=== PATIENT | male | born 1980 | race Caucasian/White ===

== ENCOUNTER 2018-01-21 12:42 | Day surgery (SDC) | payer OTHER ==
[2018-01-21] MEDS ORDERED: Ketorolac INJ* 30 MG/ML 1 ML VIAL IV PUSH ONE (14:45)
[2018-01-21 15:00] LABS: ABS Basophils 0 10^3/ul (0-0.2); ABS Eosinophils 0 10^3/ul (0-0.6); ABS Lymphocytes 0.9 10^3/ul (1.0-4.8); ABS Monocytes 1.1 10^3/ul (0-0.8); ABS Neutrophils 13.2 10^3/ul (1.5-7.7); ABS Nucleated RBC 0 10^3/ul; Eosinophil % 0.2 % (0-6); Hematocrit 42 % (42-52); Hemoglobin 14.6 g/dl (14.0-18.0); Mean Corpuscular HGB Conc 35 g/dl (31-36); Mean Corpuscular Hemoglobin 33 pg (27-31); Mean Corpuscular Volume 94 fL (80-94); Mean Platelet Volume 7.8 um3 (7.4-10.4); Nucleated Red Blood Cells % 0; Platelet Count 211 10^3/ul (150-450); Red Blood Count 4.49 10^6/ul (4.0-5.4); Red Cell Distribution Width 12 % (10.5-15); White Blood Count 15.3 10^3/ul (3.5-10.8)
[2018-01-21 15:21] LABS: EGFR Non-African American 96.7 (>60)
--- NOTE | 2018-01-21 16:07 | RAD ---
INDICATION: RIGHT lower quadrant pain with clinical concern for acute appendicitis. COMPARISON: No relevant prior exams available on the [facility] for comparison. TECHNIQUE: Ultrasound of the right lower quadrant. REPORT: 0.81 cm diameter non peristalsing blind-ending noncompressible tubular structure with suggestion of gut wall signature demonstrate 0.28 cm single wall thickness. No appendicolith visualized. Small volume of adjacent RIGHT lower quadrant free fluid. No loculated abscess collection evident. IMPRESSION: The constellation of findings in the correct clinical context is consistent with acute appendicitis.
[2018-01-21] MEDS ORDERED: Bupivacaine 0.5% SDV PF* 30ML VIAL ONE ×2 (17:42→18:26)
[2018-01-21] MEDS ORDERED: fentaNYL* 50 MCG/ML 2 ML VIAL (100 MCG VIAL) ONE ×3 (18:06→19:57)
[2018-01-21] MEDS ORDERED: Lidocaine 2% PF * 5 ML VIAL ONE (18:07)
[2018-01-21] MEDS ORDERED: Propofol* 10 MG/ML 20 ML BTL IV PUSH ONE ×2 (18:07→18:50)
[2018-01-21] MEDS ORDERED: Succinylcholine* 20 MG/ML 10 ML VIAL ONE (18:07)
[2018-01-21] MEDS ORDERED: Rocuronium* 10 MG/ML VIAL ONE (18:09)
[2018-01-21] MEDS ORDERED: Buffered Lidocaine 0.9% SYRIN* 5 ML/SYR SYRINGE INTRADERM ONE (18:14)
[2018-01-21] MEDS ORDERED: Metoclopramide IV* 5 MG/ML 2 ML VIAL IV SLOW PU ONE (18:14)
[2018-01-21] MEDS ORDERED: Sodium Citrate/Citric Acid* 15 ML UDC PO ONE (18:14)
[2018-01-21] MEDS ORDERED: Famotidine IV* 10 MG/ML 2 ML (20 mg) IV ONE (18:14)
[2018-01-21] MEDS ORDERED: Ondansetron INJ* 2 MG/ML VIAL IV PRN (18:15)
[2018-01-21] MEDS ORDERED: Ketorolac INJ* 30 MG/ML 1 ML VIAL IV PRN (18:15)
[2018-01-21] MEDS ORDERED: oxyCODONE/Acetamin 5/325 MG* TAB PO PRN (18:15)
[2018-01-21] MEDS ORDERED: oxyCODONE TAB* 5 MG TAB PO PRN ×2 (18:15→19:24)
[2018-01-21] MEDS ORDERED: HYDROmorphone INJ* 1 MG/ML CARPUJECT SYRINGE IV PRN (18:15)
[2018-01-21] MEDS ORDERED: Naloxone* 0.4 MG/ML 1 ML VIAL IV PRN (18:15)
[2018-01-21] MEDS ORDERED: Acetaminophen TAB* 325 MG PO PRN (18:15)
--- NOTE | 2018-01-21 18:26 | HP ---
H&P (Free Text) History and Physical: CC: RLQ abdominal pain HPI: 37 yo M generally health presented [place] the [facility] today with 12 hr of progressive lower abdominal pain associated with N/V and anorexia. The pain is provoked by movement and nothing relieves his pain. He reports feeling feverish. He denies sick contacts or recent travel. He has had no similar pain in the past. He had a normal BM today. Denies dysuria/hematuria. He was noted to have elevated WBCs in the ED and tenderness in the RLQ. An US showed findings c/w acute appendicitis and surgical consult was requested. PMH: seizure disorder, GERD, eczema PSH: palatal split Meds: Cialis All: None. Hives after amoxicillin once. SH: ex-tob smoker (3yr hx); EtOH intake 1 per week; occasional MJ use; no IVDA ; Grad student at [employer]. FH: diabetes in mother; arrhythmia in father; no DVT/cancer/anesthesia complications. ROS: GI: h/o blood per rectum yrs ago with GI workup reportedly negative. Neuro: Had seizure evaluation by Neurologist in past for grand mal 10 yrs ago. Noted "hypoperfusion of occipital lobe" possibly related to h/o concussion. 14 pt review otherwise was negative. PE: Vital Signs Temp 99 F 01/21/18 12:42 Pulse 88 01/21/18 12:42 Resp 18 01/21/18 12:42 BP 125/76 01/21/18 12:42 Pulse Ox 98 01/21/18 12:42 Gen: WDWN; position on ED stretcher. HEENT: NCAT; symmetrical; OP clear; dentition intact; tongue midline Neck: supple, ML trachea; no NORIS Lungs: CTA B; no W/R/R Heart: reg, s1s2; no M/R/G Abd: No scars, BS+; softly distended; tender in lower abd, R>L; +Rovsing Ext: warm; no C/C/E; no CT Skin: multiple tattoos; no rash. Intake & Output 01/20/18 01/21/18 01/21/18 18:59 06:59 18:59 Weight 175 lb Laboratory Results - last 24 hr 01/21/18 01/21/18 01/21/18 14:46 14:46 14:46 WBC 15.3 H RBC 4.49 Hgb 14.6 Hct 42 MCV 94 MCH 33 H MCHC 35 RDW 12 Plt Count 211 MPV 7.8 Neut % (Auto) 86.4 H Lymph % (Auto) 6.0 L [place] % (Auto) 7.2 H Eos % (Auto) 0.2 Baso % (Auto) 0.2 Absolute Neuts (auto) 13.2 H Absolute Lymphs (auto) 0.9 L Absolute Monos (auto) 1.1 H Absolute Eos (auto) 0 Absolute Basos (auto) 0 Absolute Nucleated RBC 0 Nucleated RBC % 0 Sodium 136 L Potassium 3.8 Chloride 102 Carbon Dioxide 26 Anion Gap 8 BUN 10 Creatinine 0.89 Est GFR ( Amer) 124.4 Est GFR (Non-Af Amer) 96.7 BUN/Creatinine Ratio 11.2 Glucose 95 Lactic Acid 0.7 Calcium 9.1 Total Bilirubin 0.90 AST 11 L ALT 10 Alkaline Phosphatase 31 L C-Reactive Protein 7.56 H Total Protein 6.4 Albumin 4.2 Globulin 2.2 Albumin/Globulin Ratio 1.9 Lipase 13 Assessment: 37 yo M with clinical findings and radiographic findings consistent with acute appendicitis. Plan/Recommendations: Laparoscopic appendectomy. I discussed the nature of the procedure, indications, risks, benefits, alternatives, and option of no treatment with the patient and his . Risks explained including but not limited to: bleeding, infection, pain, scarring, blood clots, pneumonia, visceral injury, N/V, and risk of GETA. All questions were answered. He stated understanding and agreed to proceed.
[2018-01-21] MEDS ORDERED: EPHEDrine (Pressors)* 50 MG/ML VIAL ONE (19:06)
[2018-01-21] MEDS ORDERED: Ketorolac TAB * 10 MG TAB PO PRN (19:22)
--- NOTE | 2018-01-21 19:32 | BRIEFOPN ---
Brief Operative Note - Surgery Procedures: PRE/POSTOP DX: ACUTE APPENDICITIS PROC: LAPAROSCOPIC APPENDECTOMY SURG: MECENAS ASSIST: NONE ANES: SVETLANA/KAYCEE EBL: <5ML SPEC: APPENDIX IVF: 600ML LR DRAIN/COMPL: NONE COND: STABLE TO RR; EXTUBATED.
[2018-01-21] MEDS ORDERED: oxyCODONE TAB* 5 MG TAB ONE (19:54)
--- NOTE | 2018-01-21 19:54 | ED ---
Zenon Tyson Natalie scribed for Jeferson Sandoval MD on 01/21/18 at 1444 . Abdominal Pain/Male - HPI Summary HPI Summary: The patient is a 37 y/o M presenting to the ED c/o RLQ pain starting this morning when he woke up at 07:00. Yesterday he had a normal appetite, normal urination, and normal BM, but today he hasn't had an appetite, but his urination and BM are still normal. He thought that he may have had to go to the bathroom, but having a BM did not resolve the pain. He reports that palpation and changing his posture makes the pain worse. He currently rates the pain as 3/ 10 in severity and describes it as dull and aching. He additionally c/o a current migraine and nausea that were not present initially. He has not vomited. No previous hx of back problems and has not had an appendectomy. - History of Current Complaint Chief Complaint: EDGeneral Stated Complaint: ABD PAIN Time Seen by Provider: 01/21/18 14:11 Hx Obtained From: Patient Onset/Duration: Sudden Onset - with gradual worsening, Still Present Timing: Constant Severity Initially: Mild Severity Currently: Mild Pain Intensity: 3 Pain Scale Used: 0-10 Numeric Location: Discrete At: RLQ Radiates: No Aggravating Factor(s): Other: - palpation and posture change Alleviating Factor(s): Nothing Associated Signs And Symptoms: Positive: Decreased Appetite, Nausea. Negative: Urinary Symptoms, Vomiting - Allergies/Home Medications Allergies/Adverse Reactions: Allergies Allergy/AdvReac Type Severity Reaction Status Date / Time amoxicillin Allergy Rash Verified 01/21/18 15:54 Home Medications: Home Medications Tadalafil [Cialis] 5 mg PO DAILY 01/21/18 [History Confirmed 01/21/18] PMH/Surg Hx/FS Hx/Imm Hx Cardiovascular History: Denies: Hx Hypertension Musculoskeletal History: Denies: Hx Back Problems Infectious Disease History: No Infectious Disease History: Denies: Traveled Outside the US in Last 30 Days - Family History Known Family History: Negative: Cardiac Disease, Diabetes - Social History Alcohol Use: Weekly Substance Use Type: Reports: None Smoking Status (MU): Former Smoker Review of Systems Gastrointestinal: Negative - abnormal BM Positive: Abdominal Pain - RLQ, Nausea, Other - decreased appetite. Negative: Vomiting Positive: no symptoms reported Positive: Headache All Other Systems Reviewed And Are Negative: Yes Physical Exam - Summary Physical Exam Summary: Appearance: The patient is well-nourished in no acute distress and in no acute pain. Skin: The skin is warm and dry and skin color reflects adequate perfusion. HEENT: The head is normocephalic and atraumatic. The pupils are equal and reactive. The conjunctivae are clear and without drainage. Nares are patent and without drainage. Mouth reveals moist mucous membranes and the throat is without erythema and exudate. The external ears are intact. The ear canals are patent and without drainage. The tympanic membranes are intact. Neck: The neck is supple with full range of motion and non-tender. There are no carotid bruits. There is no neck vein distension. Respiratory: Chest is non-tender. Lungs are clear to auscultation and breath sounds are symmetrical and equal. Cardiovascular: Heart is regular rate and rhythm. There is no murmur or rub auscultated. There is no peripheral edema and pulses are symmetrical and equal. Abdomen: The abdomen is tender in the RLQ. There is mild rebound. There are normal bowel sounds heard in all four quadrants and there is no organomegaly palpated. Positive Rovsing's sign. Musculoskeletal: There is no back tenderness noted. Extremities are non-tender with full range of motion. There is good capillary refill. There is no peripheral edema or calf tenderness elicited. Neurological: Patient is alert and oriented to person, place and time. The patient has symmetrical motor strength in all four extremities. Cranial nerves are grossly intact. Deep tendon reflexes are symmetrical and equal in all four extremities. Psychiatric: The patient has an appropriate affect and does not exhibit any anxiety or depression. Triage Information Reviewed: Yes Vital Signs On Initial Exam: Initial Vitals Temp Pulse Resp BP Pulse Ox 99 F 88 18 125/76 98 01/21/18 12:42 01/21/18 12:42 01/21/18 12:42 01/21/18 12:42 01/21/18 12:42 Vital Signs Reviewed: Yes Diagnostics - Vital Signs Vital Signs Temp Pulse Resp BP Pulse Ox 01/21/18 12:42 99 F 88 18 125/76 98 - Laboratory Lab Results: Lab Results 01/21/18 01/21/18 01/21/18 Range/Units 14:46 14:46 14:46 WBC 15.3 H (3.5-10.8) 10^3/ul RBC 4.49 (4.0-5.4) 10^6/ul Hgb 14.6 (14.0-18.0) g/dl Hct 42 (42-52) % MCV 94 (80-94) fL MCH 33 H (27-31) pg MCHC 35 (31-36) g/dl RDW 12 (10.5-15) % Plt Count 211 (150-450) 10^3/ul MPV 7.8 (7.4-10.4) um3 Neut % (Auto) 86.4 H (38-83) % Lymph % (Auto) 6.0 L (25-47) % [place] % (Auto) 7.2 H (0-7) % Eos % (Auto) 0.2 (0-6) % Baso % (Auto) 0.2 (0-2) % Absolute Neuts (auto) 13.2 H (1.5-7.7) 10^3/ul Absolute Lymphs (auto) 0.9 L (1.0-4.8) 10^3/ul Absolute Monos (auto) 1.1 H (0-0.8) 10^3/ul Absolute Eos (auto) 0 (0-0.6) 10^3/ul Absolute Basos (auto) 0 (0-0.2) 10^3/ul Absolute Nucleated RBC 0 10^3/ul Nucleated RBC % 0 Sodium 136 L (139-145) mmol/L Potassium 3.8 (3.5-5.0) mmol/L Chloride 102 (101-111) mmol/L Carbon Dioxide 26 (22-32) mmol/L Anion Gap 8 (2-11) mmol/L BUN 10 (6-24) mg/dL Creatinine 0.89 (0.67-1.17) mg/dL Est GFR ( Amer) 124.4 (>60) Est GFR (Non-Af Amer) 96.7 (>60) BUN/Creatinine Ratio 11.2 (8-20) Glucose 95 (70-100) mg/dL Lactic Acid 0.7 (0.5-2.0) mmol/L Calcium 9.1 (8.6-10.3) mg/dL Total Bilirubin 0.90 (0.2-1.0) mg/dL AST 11 L (13-39) U/L ALT 10 (7-52) U/L Alkaline Phosphatase 31 L (34-104) U/L C-Reactive Protein 7.56 H (< 5.00) mg/L Total Protein 6.4 (6.4-8.9) g/dL Albumin 4.2 (3.2-5.2) g/dL Globulin 2.2 (2-4) g/dL Albumin/Globulin Ratio 1.9 (1-3) Lipase 13 (11.0-82.0) U/L Result Diagrams: 01/21/18 14:46 01/21/18 14:46 Lab Statement: Any lab studies that have been ordered have been reviewed, and results considered in the medical decision making process. - Ultrasound No standard instances Ultrasound Interpretation: Positive (See Comments) - Appendix US: The constellation of findings in the correct clinical context is consistent with acute appendicitis. ED physician has reviewed this report. Ultrasound Interpretation Completed By: Radiologist Re-Evaluation - Re-Evaluation First Eval Re-Evaluation Time: 17:00 Change: Unchanged Comment: I spoke with the patient about possible surgery due to Appendix US result of acute appendicitis. Abdominal Pain Fem Course/Dx - Course Course Of Treatment: Mr. Agarwal presented with a pretty good story for acute appendicitis. He was found to have a mild leukocytosis of 15,000 and as he has quite thin body habitus, an ultrasound was obtained. This did show an acute appendicitis and Dr. Morrison was contacted, came to the emergency department and took him to the OR. - Diagnoses Provider Diagnoses: Acute appendicitis - Provider Notifications Discussed Care Of Patient With: Jean Calvo Time Discussed With Above Provider: 16:30 - I spoke with Dr. Calvo about the pt's US result of acute appendicitis. Discharge - Sign-Out/Discharge Documenting (check all that apply): Discharge/Admit/Transfer - Discharge Plan Condition: Stable Disposition: ADMITTED TO [facility] - Billing Disposition and Condition Condition: STABLE Disposition: [facility] [place] The documentation as recorded by the Zenon wood Natalie accurately reflects the service I personally performed and the decisions made by me, Jeferson Sandoval MD.
[2018-01-21] MEDS: fentaNYL* 50 MCG/ML 2 ML VIAL (100 MCG VIAL) IV PRN ×2 (19:59→20:12)
[2018-01-21 20:33] VITALS: BP 130/77
--- NOTE | 2018-01-22 02:19 | OP ---
DATE OF OPERATION: 01/21/18 - [facility] DATE OF : 82 SURGEON: Jean Calvo MD LEASE ANALYST: None. ANESTHESIOLOGIST: Dr. Maguire. ANESTHESIA: General endotracheal. PRE-OP DIAGNOSIS: Acute appendicitis. POST-OP DIAGNOSIS: Acute appendicitis. OPERATIVE PROCEDURE: Laparoscopic appendectomy. ESTIMATED BLOOD LOSS: Minimal. IV FLUIDS: Crystalloids. SPECIMEN: Appendix. DRAINS: None. COMPLICATIONS: None. COUNTS: Instrument, needle, and sponge counts correct. DESCRIPTION OF PROCEDURE: The patient was brought to the operating room and placed on the table supine. Sequential compression devices were placed on both lower extremities and general anesthesia was administered. The abdomen was prepped and draped in the usual sterile fashion and he received appropriate intravenous antibiotics. A time-out was performed. Local anesthetic was infiltrated into the skin and soft tissue prior to making each incision. Entry into the abdomen was through a transumbilical vertical incision using an open technique. After accessing the peritoneal cavity, a 12- mm trocar was placed and carbon dioxide was insufflated to a pressure of 15 mmHg. Under direct visualization, a 5-mm trocar was placed in the suprapubic midline and in the left lower quadrant. Appendix was identified in the right lower quadrant and it had suppurative changes. There were some adhesions to the mesentry of the cecum and ileum that were taken down using a combination of sharp and blunt dissection. The appendix was elevated. A window created in the mesentery of the appendix at the base and the appendix was divided using the EndoGIA stapler with a nagy cartridge. The mesentry of the appendix was divided with the EndoGIA stapler with a green cartridge. The appendix was placed into an endoscopic retrieval bag and was drawn through the umbilical site. The inspection revealed hemostasis to be excellent and these staple lines were intact. The ports were removed, carbon dioxide was released, and the umbilical wound was closed with 0 Vicryl in a [id number] fashion. Skin incisions were closed with 4-0 Monocryl in subcuticular fashion. Steri- Strips were applied. The patient tolerated the procedure well. He was extubated and transferred to the recovery room in stable condition. [id number]/[facility] #: [id number] [facility] CENTERAbner
== END 2018-01-21 17:45 | disposition home or self-care (01) ==
LOC: ED 12:42 → OR 17:45
PROVIDERS: ATTEND Surgery
DX: K35.80 Unspecified acute appendicitis (principal); R10.31 Right lower quadrant pain; Z87.891 Personal history of nicotine dependence; R11.0 Nausea; J45.990 Exercise induced bronchospasm; D72.829 Elevated white blood cell count, unspecified
CPT/HCPCS: 36415; 76705; 80053; 83605; 83690; 85025; 86140; 88304; 99283; A9270-GY; C1776; J0330; J1885; J2704; J3010

== ENCOUNTER → 2018-04-30 | Emergency (ER) | payer OTHER ==
[~2018-04-30] MED LIST: Bisacodyl SUPP* 10 MG SUPP PR ONE; Iohexol 300* (CONTRAST) 10 ML SDV IV ONE; Ketorolac INJ* 30 MG/ML 1 ML VIAL IV PUSH ONE; Magnesium CITRATE* 300 ML BTL PO ONE; Morphine INJ* 2 MG/ML 1 ML SYRINGE (TWO MG - NEW SYRINGE VERSION) ONE; Morphine INJ** 4 MG/ML 1 ML CARPUJECT IV ONE; NS 0.9% 1000 ML* 1,000 ML IV ONE; Ondansetron INJ* 2 MG/ML VIAL IV ONE
--- NOTE | 2018-04-30 00:44 | ED ---
GI/ HPI - HPI Summary HPI Summary: 37-year-old male presents with abdominal pain for the past couple hours. He states it started 45 minutes after he eat his normal dinner. had the same food and has no symptoms. States is located epigastric region. He admits to nausea but no vomiting. No fevers. No diarrhea or constipation. He had a Normal bowel movement today. He denies any urinary symptoms. Has never had this pain before. Has had his appendix removed in January. no issues since. No recent cough. No chest pain or shortness breath. States pain is coming in waves. He states pain is like a grinding and is a 10 out of 10. Hasn't taking anything for his symptoms - History of Current Complaint Chief Complaint: EDAbdPain Time Seen by Provider: 04/30/18 00:35 Stated Complaint: ABD PAIN Pain Intensity: 9 - Allergy/Home Medications Allergies/Adverse Reactions: Allergies Allergy/AdvReac Type Severity Reaction Status Date / Time amoxicillin Allergy Rash Verified 04/30/18 00:14 PMH/Surg Hx/FS Hx/Imm Hx Endocrine/Hematology History: Denies: Hx Anticoagulant Therapy Cardiovascular History: Denies: Hx Hypertension Musculoskeletal History: Denies: Hx Back Problems Infectious Disease History: No Infectious Disease History: Reports: Traveled Outside the [place] in Last 30 Days - [place] - Family History Known Family History: Negative: Cardiac Disease, Diabetes - Social History Alcohol Use: Weekly Substance Use Type: Reports: None Smoking Status (MU): Former Smoker Review of Systems Negative: Fever Negative: Chest Pain Negative: Shortness Of Breath Positive: Abdominal Pain, Nausea. Negative: Vomiting, Diarrhea All Other Systems Reviewed And Are Negative: Yes Physical Exam Triage Information Reviewed: Yes Vital Signs On Initial Exam: Initial Vitals Temp Pulse Resp BP Pulse Ox 97 F 71 18 123/79 100 04/30/18 00:14 04/30/18 00:14 04/30/18 00:14 04/30/18 00:04/30/18 00:14 Vital Signs Reviewed: Yes Appearance: Positive: Well-Appearing Skin: Positive: Warm, Dry Head/Face: Positive: Normal Head/Face Inspection Eyes: Positive: Normal, Conjunctiva Clear ENT: Positive: Pharynx normal Respiratory/Lung Sounds: Positive: Clear to Auscultation, Breath Sounds Present Cardiovascular: Positive: Normal, RRR Abdomen Description: Positive: Soft, Other: - tenderness around umblicius, LLQ Bowel Sounds: Positive: Present Musculoskeletal: Positive: Normal Neurological: Positive: Normal Psychiatric: Positive: Normal Diagnostics - Vital Signs Vital Signs Temp Pulse Resp BP Pulse Ox 04/30/18 00:14 97 F 71 18 123/79 100 - Laboratory Result Diagrams: 04/30/18 00:43 04/30/18 00:43 Lab Statement: Any lab studies that have been ordered have been reviewed, and results considered in the medical decision making process. Re-Evaluation - Re-Evaluation First Eval Re-Evaluation Time: 01:38 Change: Improved Comment: feeling better after pain meds, labs normal discussed with patient. Second Eval Re-Evaluation Time: 02:15 Comment: sleeping, no pain GIGU Course/Dx - Course Course Of Treatment: 37-year-old male presents with abdominal pain for the past couple hours. He states it started 45 minutes after he eat his normal dinner. had the same food and has no symptoms. States is located epigastric region. He admits to nausea but no vomiting. No fevers. No diarrhea or constipation. He had a Normal bowel movement today. He denies any urinary symptoms. Has never had this pain before. Has had his appendix removed in January. no issues since. No recent cough. No chest pain or shortness breath. States pain is coming in waves. He states pain is like a grinding and is a 10 out of 10. Hasn't taking anything for his symptoms. on exam appears in pain distress. tenderness around umblicius region. wbc normal. crp normal. got CT due to severity of pain. patient signed out to dr espinoza pending CT. - Diagnoses Differential Diagnoses - Male: Bowel Obstruction, Gall Bladder Disease, Gastritis, Gastroenteritis (Viral), Gerd Provider Diagnoses: Abdominal pain Discharge - Sign-Out/Discharge Documenting (check all that apply): Sign-Out Patient Signing out patient TO: David Espinoza - Discharge Plan Referrals: No Primary Care Phys,NOPCP [Primary Care Provider] -
[2018-04-30 01:00] LABS: ABS Basophils 0 10^3/ul (0-0.2); ABS Eosinophils 0.1 10^3/ul (0-0.6); ABS Lymphocytes 2.1 10^3/ul (1.0-4.8); ABS Monocytes 0.7 10^3/ul (0-0.8); ABS Neutrophils 3.8 10^3/ul (1.5-7.7); ABS Nucleated RBC 0 10^3/ul; Eosinophil % 1.1 % (0-6); Hematocrit 43 % (42-52); Hemoglobin 15.2 g/dl (14.0-18.0); Lymphocyte % 31.2 % (25-47); Mean Corpuscular HGB Conc 35 g/dl (31-36); Mean Corpuscular Hemoglobin 33 pg (27-31); Mean Corpuscular Volume 92 fL (80-94); Mean Platelet Volume 7.7 um3 (7.4-10.4); Nucleated Red Blood Cells % 0.1; Platelet Count 307 10^3/ul (150-450); Red Blood Count 4.66 10^6/ul (4.00-5.40); Red Cell Distribution Width 12 % (10.5-15); White Blood Count 6.8 10^3/ul (3.5-10.8)
[2018-04-30 01:11] LABS: EGFR Non-African American 80.8 (>60)
--- NOTE | 2018-04-30 03:33 | RAD ---
EXAM: CT Abdomen and Pelvis With Intravenous Contrast CLINICAL HISTORY: 37 years old, male; Appendectomy in 01/2018; Epigastric pain/periumbilical and low midline now. TECHNIQUE: Axial computed tomography images of the abdomen and pelvis with intravenous contrast. All CT scans at this facility use at least one of these dose optimization techniques: automated exposure control; mA and/or kV adjustment per patient size (includes targeted exams where dose is matched to clinical indication); or iterative reconstruction. Coronal and sagittal reformatted images were created and reviewed. CONTRAST: 100 mL of OMNIPAQUE 300 administered intravenously. COMPARISON: US APPENDIX 01/21/2018 3:08 PM FINDINGS: Lung bases: There is mild dependent atelectasis in both lower lobes. Heart: No cardiomegaly or pericardial effusion is noted. ABDOMEN: Liver: The liver is unremarkable. No liver lesion is seen. The contour of the liver is smooth. No hepatomegaly is noted. Gallbladder and bile ducts: The gallbladder is contracted. No calcifications are seen in the gallbladder to suggest calculi. There is no pericholecystic fluid or pericholecystic inflammatory changes. No dilation of the intrahepatic or extrahepatic bile ducts is noted. Pancreas: Normal. The main pancreatic duct is normal in caliber. Spleen: Normal. No splenomegaly is noted. Adrenals: Normal. Kidneys and ureters: The kidneys are normal in appearance. There is no hydronephrosis or hydroureter. The bones are noted in the ureters. Stomach and bowel: There is no evidence for a bowel obstruction, diverticulosis, diverticulitis, colitis, pneumatosis intestinalis, intussusception, volvulus, or perforated viscus. There is a moderate to large amount of stool in the cecum, ascending colon, and transverse colon. A mild amount of stool is present in the descending colon and rectosigmoid. PELVIS: Appendix: The appendix has been removed. Bladder: The distended urinary bladder is normal in appearance. No stones or masses are seen in the bladder. The contour of the bladder is normal. Reproductive: The prostate gland and seminal vesicles are unremarkable. ABDOMEN and PELVIS: Intraperitoneal space: No free air or free fluid. Bones/joints: The imaged bony structures are intact. There is no suspicious osteolytic or osteoblastic lesion. There is a lumbosacral transitional vertebra, and there is broadening of the both transverse proceses of the lumbosacral transitional vertebra, which are fused to both sides of the sacrum (Castellvi type IIIb lumbosacral transitional vertebra) and this stabilizes the level below the lumbosacral transitional vertebra and leads to the propensity for increased mobility and degenerative disc disease at the level above the lumbosacral transitional vertebra (Bertolotti's syndrome). Soft tissues: There is a tiny fat containing umbilical hernia. Vasculature: The abdominal aorta is normal in caliber. The renal arteries, celiac artery, superior mesenteric artery, and inferior mesenteric artery are patent. The hepatic veins, portal veins, splenic vein, superior mesenteric vein, and inferior mesenteric vein are patent. Lymph nodes: No lymphadenopathy. IMPRESSION: 1. No acute findings in the abdomen or pelvis. 2. Moderate to large amount of stool in the cecum, ascending colon, and transverse colon and a mild amount of stool in the descending colon and rectosigmoid. No bowel obstruction.
--- NOTE | 2018-04-30 03:54 | ED ---
Progress - Progress Note Progress Note: Patient was received as a sign out from [facility] as CT abd/pel results were pending. CT abd/pel impressions: 1. No acute findings in the abdomen or pelvis. 2. Moderate to large amount of stool in the cecum, ascending colon, and transverse colon and a mild amount of stool in the descending colon and rectosigmoid. No bowel obstruction. This report was reviewed by ED physician. Re-Evaluation - Re-Evaluation First Eval Re-Evaluation Time: 01:38 Change: Improved Comment: feeling better after pain meds, labs normal discussed with patient. Second Eval Re-Evaluation Time: 02:15 Comment: sleeping, no pain Third Eval Re-Evaluation Time: 03:50 Comment: Discussed results of CT abd/pel scan with patient. He will be discharged to home. Patient is agreeable with plan. Course/Dx - Course Course Of Treatment: Patient was received as a sign out from [facility] as CT abd/pel results were pending. CT abd/pel impressions: 1. No acute findings in the abdomen or pelvis. 2. Moderate to large amount of stool in the cecum, ascending colon, and transverse colon and a mild amount of stool in the descending colon and rectosigmoid. No bowel obstruction. This report was reviewed by ED physician. Discussed results of CT abd/pel scan with patient. He will be discharged to home and follow up with PCP in 1-2 days. Patient is agreeable with plan. He was diagnosed with constipation. - Diagnoses Provider Diagnoses: Constipation Discharge - Sign-Out/Discharge Documenting (check all that apply): Patient Departure - discharge - Discharge Plan Condition: Stable Disposition: HOME Patient Education Materials: Constipation (ED) Referrals: [facility] [Outside] - 2 Days Additional Instructions: RETURN TO ED FOR ANY CHANGING OR WORSENING SYMPTOMS. FOLLOW UP WITH PRIMARY CARE PHYSICIAN IN 1-2 DAYS. - Attestation Statements Document Initiated by Scribe: Yes Documenting Scribe: Carter Meléndez Provider For Whom Joe is Documenting (Include Credential): David Espinoza MD Scribe Attestation: Carter Tyson, scribed for David Espinoza MD on 04/30/18 at 0456.
[2018-04-30 04:36] VITALS: BP 102/69
== END | disposition home or self-care (01) ==
LOC: ED 00:12
DX: R10.9 Unspecified abdominal pain (principal); K59.00 Constipation, unspecified; Z87.891 Personal history of nicotine dependence
CPT/HCPCS: 36415; 74177; 80053; 83690; 85025; 86140; 96374; 96375; 99283; A9270-GY; J1885; J2270; J2405; Q9967